=== PATIENT | female | born 1945 | race Caucasian/White ===

== ENCOUNTER 2023-12-24 13:46 | Inpatient (IN) | payer MEDICARE, SELFPAY ==
[2023-12-24 15:33] LABS: #Basophils 0.04 10x3/uL (0.0-0.2); %Basophils 0.3 % (0.0-1.0); %Eosinophils 0.2 % (0.0-10.0); %Monocytes 6.9 % (0.0-10.0); %Neutrophils 78.3 % (42.0-75.0); Hematocrit 41.8 % (36.0-47.0); Hemoglobin 14.6 g/dL (12.0-16.0); Mean Corpuscular HGB CONC 34.9 g/dL (32.0-36.0); Mean Corpuscular Hemoglobin 28.1 pg (27.0-31.0); Mean Corpuscular Volume 80.5 fL (78.0-98.0); Platelet Count 322 10x3/uL (130-400); RBC Distribution Width 11.9 % (11.5-14.5); Red Blood Cell (RBC) Count 5.19 mill/uL (4.20-5.40)
[2023-12-24 15:54] LABS: ALT (SGPT) 8 U/L (8-55); AST (SGOT) 13 U/L (5-34); Albumin 3.1 g/dL (3.4-4.8); Alkaline Phosphatase 96 U/L (40-110); Anion Gap 17 mmol/L (10-20); BUN (Urea Nitrogen) 17 mg/dL (9.8-20.1); Calc. Creatinine Clearance 0 mL/min (70-130); Calcium 9.6 mg/dL (7.8-10.44); Carbon Dioxide 25 mmol/L (23-31); Chloride 94 mmol/L (98-107); Estimated GFR 79; Globulin 3.4 g/dL (2.4-3.5); Glucose 382 mg/dL (83-110); Potassium 3.8 mmol/L (3.5-5.1); Protein, Total 6.5 g/dL (5.8-8.1); Sodium 132 mmol/L (136-145)
[2023-12-24] MEDS ORDERED: Lidocaine 1% w/Epinephrine 1:100K 20 ML VIAL ONE (16:56)
[2023-12-24] MEDS ORDERED: Sodium Chloride 0.9% 100 ML ONE (17:00)
[2023-12-24] MEDS ORDERED: cefTRIAXone (ROCEPHIN) 2 GM VIAL ONE (17:00)
[2023-12-24] MEDS ORDERED: Vancomycin 1 GM/200 ML (FROZEN) BAG ONE (18:00)
[2023-12-24] MEDS ORDERED: Ondansetron ODT 4 MG TAB PO PRN (18:11)
[2023-12-24] MEDS ORDERED: Dextrose 5% in Water 1,000 ML IV PRN (18:22)
[2023-12-24] MEDS ORDERED: Glucagon 1 MG/ML KIT IM PRN (18:22)
[2023-12-24] MEDS ORDERED: Dextrose 50% Abboject 50 ML SYRINGE SLOW IVP PRN (18:22)
[2023-12-24 20:51] VITALS: BMI 23.3
[2023-12-24] MEDS: Ampicillin/Sulbactam 3 GM in Sodium Chloride 0.9% 100 ML IVPB SCH (21:08)
[2023-12-24] MEDS: HumaLOG 300 UNITS/3 ML VIAL SC PRN (21:08)
[2023-12-24] MEDS: Insulin Glargine 30 UNITS/0.3 ML VIAL SC SCH (21:08)
[2023-12-24] MEDS: Vancomycin HCl 500 MG in Sodium Chloride 0.9% 100 ML IVPB SCH (22:06)
[2023-12-24] MEDS: Acetaminophen 325 MG TAB PO PRN (22:13)
[2023-12-25] MEDS: diphenhydrAMINE 50 MG/ML VIAL IVP SCH (00:42)
[2023-12-25] MEDS: Ibuprofen 800 MG TAB PO PRN (00:42)
[2023-12-25] MEDS: Morphine 4 MG/ML VIAL SLOW IVP SCH (02:36)
[2023-12-25] MEDS: Ibuprofen 800 MG TAB PO SCH (02:36)
[2023-12-25] MEDS: Acetaminophen 325 MG TAB PO SCH (02:37)
[2023-12-25] MEDS ORDERED: Vancomycin 1 GM in Premix 1 BAG IVPB SCH (05:00)
[2023-12-25] MEDS: HumaLOG 300 UNITS/3 ML VIAL SC PRN (05:55)
[2023-12-25 06:34] LABS: #Basophils 0.04 10x3/uL (0.0-0.2); %Basophils 0.3 % (0.0-1.0); %Eosinophils 1.3 % (0.0-10.0); %Lymphocytes 20.8 % (21.0-51.0); %Monocytes 7.6 % (0.0-10.0); %Neutrophils 69.6 % (42.0-75.0); Hematocrit 39.7 % (36.0-47.0); Hemoglobin 13.3 g/dL (12.0-16.0); Mean Corpuscular HGB CONC 33.5 g/dL (32.0-36.0); Mean Corpuscular Hemoglobin 27.3 pg (27.0-31.0); Mean Corpuscular Volume 81.4 fL (78.0-98.0); Mean Platelet Volume 10.9 fL (7.4-10.4); Platelet Count 322 10x3/uL (130-400); Red Blood Cell (RBC) Count 4.88 mill/uL (4.20-5.40)
[2023-12-25 06:59] LABS: ALT (SGPT) 11 U/L (8-55); AST (SGOT) 14 U/L (5-34); Albumin 2.7 g/dL (3.4-4.8); Alkaline Phosphatase 85 U/L (40-110); Anion Gap 16 mmol/L (10-20); BUN (Urea Nitrogen) 16 mg/dL (9.8-20.1); Bilirubin, Total 0.4 mg/dL (0.2-1.2); Calc. Creatinine Clearance 55 mL/min (70-130); Calcium 9.3 mg/dL (7.8-10.44); Carbon Dioxide 26 mmol/L (23-31); Chloride 99 mmol/L (98-107); Estimated GFR 76; Globulin 3.3 g/dL (2.4-3.5); Glucose 230 mg/dL (83-110); Potassium 3.8 mmol/L (3.5-5.1); Sodium 137 mmol/L (136-145)
[2023-12-25] MEDS: Enoxaparin 40 MG (0.4 mL) SYRINGE SC SCH (08:09)
[2023-12-25] MEDS: Cefepime 1 GM in Sodium Chloride 0.9% 100 ML IVPB SCH (08:09)
[2023-12-25] MEDS: Insulin Glargine 30 UNITS/0.3 ML VIAL SC SCH ×2 (08:16→20:14)
[2023-12-25] MEDS ORDERED: Vancomycin (BATCH) 1.25 GM in Premix 1 BAG IVPB SCH (10:00)
[2023-12-25] MEDS: Clindamycin 150 MG CAP PO SCH (10:57)
[2023-12-25 13:46] LABS: Cardiac Risk 5.4 (Less than 4.5)
[2023-12-25 13:50] LABS: Hemoglobin A1c Greater than 14.0 % (4.0-6.0)
[2023-12-25] MEDS: Ketorolac Tromethamine 30 MG (1 mL) VIAL IVP SCH (14:21)
[2023-12-25] MEDS: Gabapentin 100 MG CAP PO SCH (14:22)
[2023-12-25] MEDS: Empagliflozin 10 MG TAB PO SCH (17:43)
[2023-12-26] MEDS: Empagliflozin 10 MG TAB PO SCH (08:04)
[2023-12-26] MEDS: Saccharomyces boulardii 250 MG CAP PO SCH (08:04)
[2023-12-26] MEDS: Insulin Glargine 30 UNITS/0.3 ML VIAL SC SCH (08:41)
[2023-12-26 17:22] VITALS: BP 192/79; TEMP 98.1
== END 2023-12-26 17:50 | disposition home or self-care (01) | DRG 638 ==
LOC: ERS 13:46 → T4-B 18:13 → OBSVTOIN 12-25 15:46
PROVIDERS: ADMIT Emergency Medicine; ATTEND Emergency Medicine
DX: E11.628 Type 2 diabetes mellitus with other skin complications (principal); E11.65 Type 2 diabetes mellitus with hyperglycemia; L03.90 Cellulitis, unspecified; I10 Essential (primary) hypertension; I48.91 Unspecified atrial fibrillation; I51.7 Cardiomegaly; Z79.4 Long term (current) use of insulin
CPT/HCPCS: 36415; 36416; 80053; 80061; 83036; 83605; 84443; 85025; 87040; 93005; 96365; 96367; 96372; 96375; G0378; J0295; J0692; J0696; J1200; J1650; J1815; J1885; J2270; J3370; J3370-JW; J3490

== ENCOUNTER 2024-01-03 14:19 | Inpatient (IN) | payer MEDICARE ==
[2024-01-03 15:06] LABS: #Basophils 0.04 10x3/uL (0.0-0.2); %Basophils 0.6 % (0.0-1.0); %Eosinophils 1.9 % (0.0-10.0); %Lymphocytes 31.5 % (21.0-51.0); %Monocytes 7.5 % (0.0-10.0); %Neutrophils 58.3 % (42.0-75.0); Hematocrit 42.9 % (36.0-47.0); Hemoglobin 13.9 g/dL (12.0-16.0); Mean Corpuscular HGB CONC 32.4 g/dL (32.0-36.0); Mean Corpuscular Hemoglobin 27.3 pg (27.0-31.0); Mean Corpuscular Volume 84.3 fL (78.0-98.0); Mean Platelet Volume 9.6 fL (7.4-10.4); Platelet Count 570 10x3/uL (130-400); RBC Distribution Width 12.2 % (11.5-14.5); Red Blood Cell (RBC) Count 5.09 mill/uL (4.20-5.40)
[2024-01-03 15:38] LABS: ALT (SGPT) 11 U/L (8-55); AST (SGOT) 14 U/L (5-34); Albumin 3.3 g/dL (3.4-4.8); Alkaline Phosphatase 90 U/L (40-110); Anion Gap 17 mmol/L (10-20); BUN (Urea Nitrogen) 17 mg/dL (9.8-20.1); Bilirubin, Total 0.2 mg/dL (0.2-1.2); Calc. Creatinine Clearance 0 mL/min (70-130); Calcium 9.9 mg/dL (7.8-10.44); Carbon Dioxide 23 mmol/L (23-31); Chloride 99 mmol/L (98-107); Estimated GFR 76; Globulin 4.4 g/dL (2.4-3.5); Glucose 203 mg/dL (83-110); Potassium 4.2 mmol/L (3.5-5.1); Protein, Total 7.7 g/dL (5.8-8.1); Sodium 135 mmol/L (136-145)
[2024-01-03] MEDS ORDERED: Sodium Chloride 0.9% 100 ML ONE (15:42)
[2024-01-03] MEDS ORDERED: Piperacillin/Tazobactam 4.5 GM VIAL ONE (15:42)
[2024-01-03] MEDS ORDERED: Glucagon 1 MG/ML KIT IM PRN (16:40)
[2024-01-03] MEDS ORDERED: Dextrose 50% Abboject 50 ML SYRINGE SLOW IVP PRN (16:40)
[2024-01-03] MEDS ORDERED: Dextrose 5% in Water 1,000 ML IV PRN (16:40)
[2024-01-03] MEDS ORDERED: Acetaminophen 650 MG Suppository PR PRN (16:40)
[2024-01-03] MEDS ORDERED: HumaLOG 300 UNITS/3 ML VIAL SC PRN (16:40)
[2024-01-03] MEDS ORDERED: Vancomycin 1 GM/200 ML (FROZEN) BAG ONE (17:01)
[2024-01-03 17:04] LABS: Bacteria/HPF None Seen HPF (None Seen); Bilirubin Negative (Negative); Blood, Urine Negative (Negative); CAUTI Indications for Culture Immunosuppressed; Clarity Clear (Clear); Glucose, Urine (Dipstick) Greater than 1000 mg/dL (Negative); Ketone, Urine Negative (Negative); Leukocyte Negative Leu/uL (Negative); Nitrite Negative (Negative); Protein, Urine (Dipstick) Negative (Neg-Trace); RBC/HPF None Seen HPF (0-3); Specific Gravity, Urine 1.006 (1.002-1.036); Squamous Epithelial None Seen HPF (0-3); Urobilinogen Normal mg/dL (Less than 2); WBC/HPF 0-3 HPF (0-3); pH, Urine 6.5 (5.0-9.0)
[2024-01-03 17:06] LABS: Urine Culture Reflex Yes Yes
[2024-01-03] MEDS ORDERED: Ketorolac Tromethamine 10 MG TAB PO PRN (18:36)
[2024-01-03] MEDS ORDERED: [UNRECOGNIZED DRUG - OTHER] SCH (18:45)
[2024-01-03] MEDS ORDERED: INSULIN LISPRO 100 UNIT/ML SCH (18:45)
[2024-01-03] MEDS ORDERED: INS SCH (18:45)
[2024-01-03] MEDS: Piperacillin/Tazobactam 3.375 GM in Sodium Chloride 0.9% 100 ML IVPB SCH (19:57)
[2024-01-03 20:16] VITALS: BMI 22.4
[2024-01-03] MEDS ORDERED: Vancomycin 1 GM in Premix 1 BAG IVPB SCH (21:00)
[2024-01-04 05:44] LABS: #Basophils 0.03 10x3/uL (0.0-0.2); %Basophils 0.4 % (0.0-1.0); %Eosinophils 2.2 % (0.0-10.0); %Lymphocytes 33.2 % (21.0-51.0); %Monocytes 7.9 % (0.0-10.0); Hematocrit 34.6 % (36.0-47.0); Hemoglobin 11.4 g/dL (12.0-16.0); Mean Corpuscular HGB CONC 32.9 g/dL (32.0-36.0); Mean Corpuscular Hemoglobin 27.5 pg (27.0-31.0); Mean Corpuscular Volume 83.6 fL (78.0-98.0); Mean Platelet Volume 9.6 fL (7.4-10.4); Platelet Count 460 10x3/uL (130-400); RBC Distribution Width 12.2 % (11.5-14.5); Red Blood Cell (RBC) Count 4.14 mill/uL (4.20-5.40)
[2024-01-04 06:02] LABS: Vancomycin, Random 6.3 ug/mL (See Comment)
[2024-01-04 06:05] LABS: Anion Gap 15 mmol/L (10-20); BUN (Urea Nitrogen) 12 mg/dL (9.8-20.1); Calc. Creatinine Clearance 62 mL/min (70-130); Calcium 8.7 mg/dL (7.8-10.44); Carbon Dioxide 24 mmol/L (23-31); Chloride 110 mmol/L (98-107); Estimated GFR 90; Glucose 72 mg/dL (83-110); Potassium 4.1 mmol/L (3.5-5.1); Sodium 145 mmol/L (136-145)
[2024-01-04] MEDS ORDERED: Insulin Glargine 30 UNITS/0.3 ML VIAL SC SCH (09:00)
[2024-01-04] MEDS: Atorvastatin Calcium 40 MG TAB PO SCH (10:04)
[2024-01-04] MEDS: Empagliflozin 10 MG TAB PO SCH (10:05)
[2024-01-04] MEDS: Insulin Glargine 30 UNITS/0.3 ML VIAL SC SCH (10:06)
[2024-01-04] MEDS: Enoxaparin 40 MG (0.4 mL) SYRINGE SC SCH (10:06)
[2024-01-04] MEDS: Saccharomyces boulardii 250 MG CAP PO SCH (10:07)
[2024-01-04] MEDS: Vancomycin (BATCH) 1.25 GM in Premix 1 BAG IVPB SCH (10:11)
[2024-01-05 05:27] LABS: #Basophils 0.04 10x3/uL (0.0-0.2); %Basophils 0.6 % (0.0-1.0); %Lymphocytes 38.8 % (21.0-51.0); %Neutrophils 50.4 % (42.0-75.0); Hematocrit 40.1 % (36.0-47.0); Mean Corpuscular HGB CONC 32.4 g/dL (32.0-36.0); Mean Corpuscular Hemoglobin 26.8 pg (27.0-31.0); Mean Corpuscular Volume 82.7 fL (78.0-98.0); Mean Platelet Volume 9.8 fL (7.4-10.4); Platelet Count 499 10x3/uL (130-400); RBC Distribution Width 12.3 % (11.5-14.5); Red Blood Cell (RBC) Count 4.85 mill/uL (4.20-5.40)
[2024-01-05 05:29] LABS: Vancomycin, Random 10.8 ug/mL (See Comment)
[2024-01-05 05:31] LABS: Anion Gap 13 mmol/L (10-20); BUN (Urea Nitrogen) 14 mg/dL (9.8-20.1); Calc. Creatinine Clearance 54 mL/min (70-130); Calcium 9.3 mg/dL (7.8-10.44); Carbon Dioxide 27 mmol/L (23-31); Chloride 107 mmol/L (98-107); Estimated GFR 80; Glucose 146 mg/dL (83-110); Potassium 4.3 mmol/L (3.5-5.1); Sodium 143 mmol/L (136-145)
[2024-01-05 10:44] VITALS: BMI 22.4
[2024-01-05] MEDS: HumaLOG 300 UNITS/3 ML VIAL SC PRN (13:53)
[2024-01-05] MEDS: metFORMIN 500 MG TAB PO SCH ×2 (13:57→18:39)
[2024-01-06 05:45] LABS: Anion Gap 10 mmol/L (10-20); BUN (Urea Nitrogen) 14 mg/dL (9.8-20.1); Calc. Creatinine Clearance 57 mL/min (70-130); Calcium 9.1 mg/dL (7.8-10.44); Carbon Dioxide 27 mmol/L (23-31); Chloride 109 mmol/L (98-107); Estimated GFR 84; Glucose 150 mg/dL (83-110); Potassium 4.1 mmol/L (3.5-5.1); Sodium 142 mmol/L (136-145)
[2024-01-06 06:01] LABS: #Basophils 0.04 10x3/uL (0.0-0.2); %Basophils 0.6 % (0.0-1.0); %Eosinophils 3.4 % (0.0-10.0); %Monocytes 8.5 % (0.0-10.0); %Neutrophils 48.2 % (42.0-75.0); Hemoglobin 12.1 g/dL (12.0-16.0); Mean Corpuscular HGB CONC 32.7 g/dL (32.0-36.0); Mean Corpuscular Hemoglobin 27.9 pg (27.0-31.0); Mean Corpuscular Volume 85.3 fL (78.0-98.0); Mean Platelet Volume 9.8 fL (7.4-10.4); Platelet Count 448 10x3/uL (130-400); RBC Distribution Width 12.3 % (11.5-14.5); Red Blood Cell (RBC) Count 4.34 mill/uL (4.20-5.40)
[2024-01-06] MEDS: metFORMIN 500 MG TAB PO SCH (09:22)
[2024-01-06] MEDS: Empagliflozin 25 MG TAB PO SCH (09:22)
[2024-01-07 05:18] LABS: #Basophils 0.05 10x3/uL (0.0-0.2); %Basophils 0.6 % (0.0-1.0); %Eosinophils 2.5 % (0.0-10.0); %Lymphocytes 38.1 % (21.0-51.0); %Monocytes 8.2 % (0.0-10.0); %Neutrophils 50.5 % (42.0-75.0); Hematocrit 38.2 % (36.0-47.0); Hemoglobin 12.3 g/dL (12.0-16.0); Mean Corpuscular HGB CONC 32.2 g/dL (32.0-36.0); Mean Corpuscular Hemoglobin 27.2 pg (27.0-31.0); Mean Corpuscular Volume 84.5 fL (78.0-98.0); Mean Platelet Volume 9.9 fL (7.4-10.4); Platelet Count 448 10x3/uL (130-400); RBC Distribution Width 12.1 % (11.5-14.5); Red Blood Cell (RBC) Count 4.52 mill/uL (4.20-5.40)
[2024-01-07 05:33] LABS: Anion Gap 17 mmol/L (10-20); BUN (Urea Nitrogen) 18 mg/dL (9.8-20.1); Calc. Creatinine Clearance 54 mL/min (70-130); Calcium 9.2 mg/dL (7.8-10.44); Carbon Dioxide 22 mmol/L (23-31); Chloride 105 mmol/L (98-107); Estimated GFR 80; Glucose 128 mg/dL (83-110); Potassium 4.1 mmol/L (3.5-5.1); Sodium 140 mmol/L (136-145)
[2024-01-07 05:37] LABS: Vancomycin, Random 13.1 ug/mL (See Comment)
[2024-01-07 10:39] LABS: Troponin I Less than 0.010 ng/mL (< 0.028)
[2024-01-07 11:01] VITALS: BP 165/76; TEMP 98.2
== END 2024-01-07 11:01 | disposition home or self-care (01) | DRG 638 ==
LOC: ERS 14:19 → MSONC 16:03
PROVIDERS: ADMIT Student in an Organized Health Care Education/Training Program; ATTEND Student in an Organized Health Care Education/Training Program
DX: E11.628 Type 2 diabetes mellitus with other skin complications (principal); L03.115 Cellulitis of right lower limb; I48.0 Paroxysmal atrial fibrillation; E11.65 Type 2 diabetes mellitus with hyperglycemia; I48.91 Unspecified atrial fibrillation; E11.40 Type 2 diabetes mellitus with diabetic neuropathy, unspecified; Z88.2 Allergy status to sulfonamides; Z91.040 Latex allergy status; Z79.4 Long term (current) use of insulin; Z79.899 Other long term (current) drug therapy
CPT/HCPCS: 36415; 36416; 80048; 80053; 80202; 81001; 82010; 83605; 84484; 85025; 86141; 87040; 87086; 93005; 93010; 93923; 96365; 96375; 97139; J1650; J1815; J2543; J3370; J3370-JW; J3490